=== PATIENT | female | born 1995 | race Hispanic/Latino ===

== ENCOUNTER 2018-10-15 10:19 | Day surgery (SDC) | payer MEDICAID, OTHER ==
[2018-10-15 10:45] VITALS: TEMP 98.9; BMI 28.5
--- NOTE | 2018-10-15 11:15 | ULT ---
ULTRASOUND BIOPHYSICAL PROFILE: HISTORY: Cholestasis of FINDINGS: A single live intrauterine gestation is seen. heart rate: 149 bpm SHIRLENE: 9.9 cm Placenta: Posterior without placenta previa OB biophysical profile: tone: 2 breathin movements: 2 Amniotic fluid: 2 IMPRESSION: The ultrasound biophysical profile score is 8 out of 8.
--- NOTE | 2018-10-15 11:24 | PDOC.LDHP ---
Labor and Delivery H&P Chief complaint: other (itching) HPI: 22 yo @ 37.5 wks by 25.4 wk holly is sent over from clinic for intense pruritis of hands and feet. No vaginal bleeding, LOF, contractions, or pain. She has already had lab work done prior to coming here and has been prescribed ursidiol. She came to get a BPP[facility]ST [facility]. Current gestational age (weeks): 37 (37.5) Due date: 10/31/18 Dating criteria: second trimester ultrasound (25.4) Grav: 1 Para: 0 Current complications: other (late to care with suboptimal dating) Abnormal US findings: No Current medications: pre-lazara vitamins Allergies/Adverse Reactions: Allergies Allergy/AdvReac Type Severity Reaction Status Date / Time No Known Allergies Allergy Unverified 10/15/18 10:50 Social history: none - Physical Exam Vital signs reviewed and normal: yes General: NAD, resting, other (no rash or jaundice on exam) Heart: RRR Lungs: nonlabored breathing Abdomen: gravid Extremeties: no edema - OB Labs Blood type: O RH: positive Antibody Screen: negative HIV: negative RPR: negative HEPSAg: negative 1 hour GCT: negative (97) Rubella: immune Additional Labs: quant gold negative - Plan -: Pruritis consistent with intrahepatic cholestasis of - Has had labs completed at outside lab - Already prescribed Ursodiol by [facility] - Sent over for BPP and NST which are ordered Late presentation of care with suboptimal dating at 25 weeks EGA Dispo: BPP 8/8 and NST reactive. Will discharge home. Return precautions and kick counts explained. Has plan for follow up on Saturday at [facility]. Addendum - Attending - Attending Attestation Date/Time: 10/15/18 1200 I personally evaluated the patient and discussed the management with Dr. Iraheta I agree with the History, Examination, Assessment and Plan documented above with any addition or exceptions noted below - 22 yo @37 5/7 weeks sent from [facility] for BPP due to new onset of itching of palms and soles suspicious for cholestasis of . BPP 8/8 NST reactive. Patient had labs drawn at [facility] and has follow-up scheduled for Saturday.
== END 2018-10-15 11:40 | disposition home or self-care (01) ==
LOC: L&D/OP 10:19
PROVIDERS: ATTEND Family Medicine
DX: O26.893 Other specified pregnancy related conditions, third trimester (principal); L29.8 Other pruritus; Z3A.37 37 weeks gestation of pregnancy
CPT/HCPCS: 59025; 76819; 99282

== ENCOUNTER 2018-10-23 02:58 | Inpatient (IN) | payer OTHER ==
[2018-10-23] MEDS ORDERED: Morphine 10 MG/ML VIAL IM SCH ×2 (04:30)
[2018-10-23] MEDS ORDERED: hydrALAZINE 20 MG/ML VIAL SLOW IVP PRN ×3 (04:41→12:48)
[2018-10-23 04:43] VITALS: BMI 30.5
[2018-10-23] MEDS ORDERED: Morphine 4 MG/ML VIAL SLOW IVP SCH (04:45)
--- NOTE | 2018-10-23 04:58 | PDOC.LDHP ---
Labor and Delivery H&P Chief complaint: contractions HPI: 22 yo G1 at 38.6 by 25 wk sono here for CTX. Started at 2am have increased in frequency and strength. Endorses FM, denies VB/LOF/VD. Antepartum course complicated by late dating sono and transfer of care from [place]. CTX uncomfortable. Current gestational age (weeks): 38 (38.6) Dating criteria: other (25wksono) Grav: 1 Para: 0 OB History Details: first Current complications: none Past Medical History: denies Current medications: pre- vitamins Previous surgical history: none Allergies/Adverse Reactions: Allergies Allergy/AdvReac Type Severity Reaction Status Date / Time No Known Allergies Allergy Verified 10/23/18 04:45 Social history: none - Physical Exam Vital signs reviewed and normal: yes General: breathing through contractions Heart: RRR Lungs: CTAB Abdomen: NTTP FHT: category 1 [place] contractions every: uterine irrtability - Vaginal Exam cm dilated: 4 Effacement: 75% Station: -1 - OB Labs Blood type: O RH: positive Antibody Screen: negative HIV: negative RPR: negative HEPSAg: negative 1 hour GCT: negative GBS: negative Rubella: immune - Plan -: 22 yo G1 by 25.4wk sono 1. sIUP, term -FHT: Cat 1 -SVE: 80/-1, uterine irritability -Very uncomfortable will give 2mg IV morphine and 6mg IM -Monitor and recheck in two hours -Baby vertex -GBS negative 2. Transfer of care from [place] -patient with suboptimal 25wk U/S -quant gold negative 3. S<D -On U/S from 09/09/18 -Will continue monitoring baby -Request recent U/S and PNC records in AM if patient stays Discussed with Dr. Fitzgerald
[2018-10-23] MEDS ORDERED: Lidocaine 1% (PF) 30 ML VIAL SC PRN (05:21)
[2018-10-23] MEDS ORDERED: NS / Oxytocin 40 units/1000ml 1,000 ML IV PRN (05:21)
[2018-10-23] MEDS ORDERED: Promethazine HCl 25 MG/ML VIAL IM PRN (05:21)
[2018-10-23] MEDS ORDERED: Ondansetron PF 4 MG/2 ML Vial IVP PRN (05:21)
[2018-10-23] MEDS: Lactated Ringer's 1,000 ML IV SCH (05:44)
--- NOTE | 2018-10-23 05:52 | PDOC.EVN ---
Event Note - Event Note Event Note: At recheck patient now at 580/-1. Due to cervical change discussed need to admit in anticipation of expected delivery. Patient wants to think about epidural, will have her watch video. Much more comfortable with IV/IM morhpine. CTX q1-4 min, difficult to package pick up on [facility]. Will recheck in two hours.
[2018-10-23 06:03] LABS: Mean Corpuscular HGB CONC 33.8 g/dL (32.0-36.0); Mean Corpuscular Hemoglobin 30.9 pg (27.0-31.0); Mean Corpuscular Volume 91.5 fL (78.0-98.0); Platelet Count 103 thou/uL (130-400); RBC Distribution Width 13.8 % (11.5-14.5); Red Blood Cell (RBC) Count 4.19 mill/uL (4.20-5.40); White Blood Cell (WBC) Count 6.8 thou/uL (4.8-10.8)
[2018-10-23 06:41] LABS: HBSAg Index 0.25 S/CO (0-0.99); Hep B Surf Ag Non-Reactive S/CO (NonReactive)
[2018-10-23 07:38] LABS: Syphilis Antibody Nonreactive (Nonreactive); Syphilis Antibody Index 0.02 S/CO (<1.00 Non-Reactive)
--- NOTE | 2018-10-23 08:42 | PDOC.LDPN ---
Labor & Delivery Progress Note - Subjective Subjective: painful contractions, vaginal pressure - Objective Vital signs reviewed and normal: yes General: NAD, breathing through contractions Uterine fundus: tender to palpation Dilation: 5 Effacement: 90% Station: -2 FHT: category 1 [place] contractions every: 2-3 min AROM: clear fluid - Assessment (1) Current Visit: Yes Status: Acute Qualifiers: Weeks of gestation: 38 weeks Qualified Code(s): Z3A.38 - 38 weeks gestation of Plan: labor augmentation (AROM reassess in 2 hours)
[2018-10-23] MEDS ORDERED: Butorphanol Tartrate 1 MG/ML VIAL ONE (09:42)
[2018-10-23] MEDS ORDERED: Butorphanol Tartrate 1 MG/ML VIAL SLOW IVP PRN (09:55)
[2018-10-23] MEDS ORDERED: NS w/ Oxytocin 10 units 500 ML ONE (09:56)
[2018-10-23] MEDS ORDERED: NS w/ Oxytocin 10 units 500 ML IV SCH (10:00)
[2018-10-23] MEDS ORDERED: Misoprostol 200 MCG TAB ONE (12:28)
--- NOTE | 2018-10-23 12:46 | PDOC.OPDEL ---
OB Operative/Delivery Note Delivery Dr/Surgeon: Dr. Enrique and Dr. Stone with Dr. Stahl attending Pre-Delivery Diagnosis: active labor Procedure/Post Delivery Dx: spontaneous vaginal delivery Weeks gestation: 38 (38w6d) Anesthesia: none - Findings A Sex: female - 1 min: 9 - 5 min: 9 - Additional Findings/Plan Placenta delivered: spontaneous Repaired Obstetrical Laceration: periurethral Estimated blood loss: 500mL Compilations/Other Findings: This is a 22 year old female @ 38.6wks who delivered a viable F at 1223 on 10/23/18. Following an uneventful antepartum course, a vigorous female was delivered over an intact perineum in the Right occipitoanterior position. Anterior Shoulder and then remainder of the body delivered. No nuchal cord. The head was held down and mouth and nares were bulb suctioned. Cord clamped and cut and cord blood collected. Placenta delivered intact via [place] mechanism with a 3 vessel cord noted. Fundal massage was performed and the fundus was initially boggy, but after about a minute it became firm with bimanual massage and pitocin being started. The cervix and vagina were inspected and R periurethral Laceration noted that was bleeding. This was repaired with 2-0 vicryl suture with a [id number]. A small first degree hemostatic laceration was also noted that was not repaired. Following this there was good hemostasis. Infant went to nursery in good condition for routine care. Apgars were 9&9 at 1 & 5 minutes, respectively. Patient tolerated delivery well and went to after routine care. EBL 500mL QBL pending Post delivery plan: routine recovery
[2018-10-23] MEDS ORDERED: HYDROcodone/Acetaminophen 5/325 mg Tablet PO PRN ×2 (12:47)
[2018-10-23] MEDS ORDERED: diphenhydrAMINE 25 MG CAP PO PRN (12:48)
[2018-10-23] MEDS ORDERED: Adacel (T-DAP) 0.5 ML SYRINGE IM ONE (12:48)
[2018-10-23] MEDS ORDERED: Methylergonovine 0.2 MG TAB PO PRN (12:48)
[2018-10-23] MEDS ORDERED: Benzocaine-Menthol 82.5 ML CAN TOP PRN (12:48)
[2018-10-23] MEDS ORDERED: Misoprostol 200 MCG TAB VAG PRN (12:48)
[2018-10-23] MEDS ORDERED: Milk Of Magnesia 30 ML UDCUP PO PRN (12:48)
[2018-10-23] MEDS ORDERED: Bisacodyl 10 MG SUPP PR PRN (12:48)
--- NOTE | 2018-10-23 12:48 | PDOC.EVN ---
Event Note - Event Note Event Note: OBGYN Faculty Delivery Attestation Present and participated with controlled TSVD Time of Delivery: 1223 or so on 10/23/18 Delivery MD: Iva Dwyerdiver assistant: Lambert Stone Staff: Favio Procedure: Anesthesia: none intrapartum/local for repair EBL 500 (QBL pending) Findings: Vigorous female Apgars 9/9 No gross anomalies No NC Placenta intact and delivered within 5 minutes of child ([facility]) Right first degree periurethral lac RX with 2-0Vicryl with red rubber cathether in urethra Counts correct Path none No cord gas sent No vag packs
[2018-10-23] MEDS ORDERED: Ibuprofen 800 MG TAB PO SCH (13:00)
[2018-10-23] MEDS ORDERED: NS / Oxytocin 40 units/1000ml 1,000 ML IV SCH (13:00)
[2018-10-23] MEDS: Ferrous Sulfate 325 MG TAB PO SCH (16:08)
[2018-10-23] MEDS: Docusate Calcium (SURFAK) 240 MG CAP PO SCH (22:03)
[2018-10-23] MEDS: Ibuprofen 800 MG TAB PO SCH (22:03)
[2018-10-24] MEDS: Ibuprofen 800 MG TAB PO SCH ×3 (06:32→21:26)
[2018-10-24 06:48] LABS: Hemoglobin 8.9 g/dL (12.0-16.0)
--- NOTE | 2018-10-24 06:57 | PDOC.OBPPN ---
FMR OB PN: Subj - Interval History Day: 1 22 yo ->1 at 38.6 WGA delivered via @ 1223 on 10/23 Patient reports some abdominal cramping, but it is controlled with ibuprofen. Endorses minimal lochia. Ambulating, tolerating PO. Endorses flatus. Breast feeding without difficulty. FMR OB PN: Obj - Maternal Vital signs: BP: 105/64 HR: 75 RR: 20 Tmax: 98.5 Pox: 100% on RA Wt: 75.75kg - Urine output I&O: 10/22/18 10/23/18 10/24/18 06:59 06:59 06:59 Intake Total 480 Balance 480 FMR OB PN: Exam - Physical Exam General: NAD, awake, alert and oriented HEENT: MMM, conjunctiva clear, grossly normal vision, grossly normal hearing Neck: supple, no LAD Heart: RRR, no murmurs/rubs/gallops, pulses present, no edema General: CTAB, no respiratory distress, no rales/rhonchi, no wheezing Abdomen: soft, fundus(cm) (firm 2 cm below umbilicus), bowel sound present Neurological: no tremor, no focal deficit Skin: good tugor, capillary refill <2 seconds : appropriately tender Psychiatric: intact recent and remote memory, good judgement and insight FMR OB PN: Data - Labs Lab results: Laboratory Results - last 24 hr 10/23/18 10/23/18 10/23/18 05:46 05:46 06:22 Hgb Hct Syphilis IgG/IgM Ab Nonreactive Hep Bs Antigen Non-Reactive Blood Type O POSITIVE 10/24/18 06:28 Hgb 8.9 L Hct 26.4 L Syphilis IgG/IgM Ab Hep Bs Antigen Blood Type FMR OB PN: A/P - Problem List (1) Term delivered Current Visit: Yes Status: Acute Code(s): O80 - ENCOUNTER FOR FULL-TERM UNCOMPLICATED DELIVERY Assessment and Plan: Continue routine care -PNV -Ibuprofen scheduled for pain -Encouraged breast feeding -Encouraged ambulation -Anticipate d/c home tomorrow (2) Anemia, Current Visit: Yes Status: Acute Code(s): O90.81 - ANEMIA OF THE PUERPERIUM Assessment and Plan: Hb dropped from 13.0 to 8.9. QBL 387mL, EBL 500mL during delivery. Patient asymptomatic. Hct > 25. -On iron Disposition: Continue routine post- care Discussion: Date/Time: 10/24/18654 This H&P was discussed with Dr. Stahl who agrees with the above documentation and plan. Signature: Marisa Enrique MD, PGY-2
--- NOTE | 2018-10-24 07:33 | PDOC.EVN ---
Event Note - Event Note Event Note: PPD1 Faculty noote I have seen and evaluated the patient. Reviewed with Dr Enrique. HCT decreased from her baseline but still above 25, and SXS. Possible DSCH PPD2
[2018-10-24] MEDS: Ferrous Sulfate 325 MG TAB PO SCH ×3 (09:30→17:55)
[2018-10-24] MEDS: Lactated Ringer's 1,000 ML IV SCH (09:31)
[2018-10-24] MEDS: Docusate Calcium (SURFAK) 240 MG CAP PO SCH ×2 (09:47→21:26)
--- NOTE | 2018-10-25 05:00 | PDOC.OBPPN ---
FMR OB PN: Subj - Interval History Day: 2 22 yo ->1 at 38.6 WGA delivered via @ 1223 on 10/23 Patient reports some abdominal cramping, but it is controlled with ibuprofen. She reports some perineal pain. Endorses minimal lochia. Ambulating, tolerating PO. Endorses flatus. Breast feeding, but having nipple pain. FMR OB PN: Obj - Maternal Vital signs: BP: 124/59 HR: 87 RR: 18 Tmax: 98.2 Pox: 98% on RA Wt: 75.75kg - Urine output I&O: 10/23/18 10/24/18 10/25/18 06:59 06:59 06:59 Intake Total 480 Balance 480 FMR OB PN: Exam - Physical Exam General: NAD, awake, alert and oriented HEENT: MMM, grossly normal vision, grossly normal hearing Heart: RRR, normal S1/S2, no murmurs/rubs/gallops, pulses present, no edema General: CTAB, no respiratory distress, good air movement, no rales/rhonchi, no wheezing Abdomen: soft, fundus(cm) (firm 2 cm below umbilicus) Neurological: no focal deficit Skin: good tugor : appropriately tender Psychiatric: intact recent and remote memory, good judgement and insight - Pelvic Exam : perineal incision/laceration healing well, sutures intact, no discharge FMR OB PN: Data - Labs Lab results: Laboratory Results - last 24 hr 10/24/18 06:28 Hgb 8.9 L Hct 26.4 L FMR OB PN: A/P - Problem List (1) Term delivered Current Visit: Yes Status: Acute Code(s): O80 - ENCOUNTER FOR FULL-TERM UNCOMPLICATED DELIVERY Assessment and Plan: Continue routine care -PNV -Ibuprofen scheduled for pain -Encouraged breast feeding -Encouraged ambulation -Anticipate d/c home today (2) Anemia, Current Visit: Yes Status: Acute Code(s): O90.81 - ANEMIA OF THE PUERPERIUM Assessment and Plan: Hb dropped from 13.0 to 8.9. QBL 387mL, EBL 500mL during delivery. Patient asymptomatic. Hct > 25. -On iron Disposition: d/c home today Discussion: Date/Time: 10/25/18 [id number] This H&P was discussed with Dr. Artsi who agrees with the above documentation and plan. Signature: Marisa Enrique MD, PGY-2
[2018-10-25] MEDS: Ibuprofen 800 MG TAB PO SCH (05:53)
[2018-10-25] MEDS ORDERED: Lanolin Ointment 7 GM TUBE TOP PRN (06:04)
[2018-10-25 08:58] VITALS: BP 122/67; TEMP 98.4
[2018-10-25] MEDS: Docusate Calcium (SURFAK) 240 MG CAP PO SCH (09:33)
[2018-10-25] MEDS: Ferrous Sulfate 325 MG TAB PO SCH (09:33)
== END 2018-10-25 13:00 | disposition home or self-care (01) | DRG 807 ==
LOC: L&D/OP 02:58 → L&D 05:48 → 3SW 15:19
PROVIDERS: ADMIT Obstetrics & Gynecology; ATTEND Obstetrics & Gynecology
PROC: 10E0XZZ Delivery of Products of Conception, External Approach (ICD-10-PCS; principal; 2018-10-23)
PROC: 0HQ9XZZ Repair Perineum Skin, External Approach (ICD-10-PCS; 2018-10-23)
DX: O71.82 Other specified trauma to perineum and vulva (principal); Z37.0 Single live birth; Z3A.38 38 weeks gestation of pregnancy; O90.81 Anemia of the puerperium; D64.9 Anemia, unspecified
CPT/HCPCS: 36415; 85014; 85018; 85027; 86780; 86850; 86900; 86901; 87340; 90715; 99285; J0595; J2001; J2270; J2405; J2590